=== PATIENT | female | born 1945 | race Caucasian/White ===

== ENCOUNTER → 2019-06-27 | Outpatient (CLI) | payer MEDICARE, BC ==
[~2019-06-27] MED LIST: OMNIPAQUE 350 MG/ML, 100ML BOTTLE ONE
== END | disposition home or self-care (01) ==
LOC: CFH 12:50
PROVIDERS: ATTEND Internal Medicine Cardiovascular Disease
DX: M95.4 Acquired deformity of chest and rib (principal); I71.2 Thoracic aortic aneurysm, without rupture; Q24.8 Other specified congenital malformations of heart
CPT/HCPCS: 71275; Q9967

== ENCOUNTER 2020-01-11 07:35 | Outpatient (CLI) | payer MEDICARE, BC | END 2020-01-12 23:59 | disposition home or self-care (01) | LOC: CFH 07:35 | PROVIDERS: ATTEND Internal Medicine Cardiovascular Disease | DX: I35.1 Nonrheumatic aortic (valve) insufficiency (principal); I21.19 ST elevation (STEMI) myocardial infarction involving other coronary artery of inferior wall; I10 Essential (primary) hypertension; E11.9 Type 2 diabetes mellitus without complications; E78.5 Hyperlipidemia, unspecified; I71.9 Aortic aneurysm of unspecified site, without rupture; I25.10 Atherosclerotic heart disease of native coronary artery without angina pectoris | CPT/HCPCS: 78452; 93017; 93306; A9502 ==

== ENCOUNTER 2020-01-12 07:43 | Outpatient (CLI) | payer MEDICARE, BC | END 2020-01-12 23:59 | disposition home or self-care (01) | LOC: CFH 07:43 | PROVIDERS: ATTEND Internal Medicine Cardiovascular Disease | DX: Z02.9 Encounter for administrative examinations, unspecified (principal) ==

== ENCOUNTER 2020-07-18 10:19 | Outpatient (CLI) | payer MEDICARE | END 2020-07-18 23:59 | disposition home or self-care (01) | LOC: CFH 10:19 | PROVIDERS: ATTEND Internal Medicine | DX: Z12.31 Encounter for screening mammogram for malignant neoplasm of breast (principal); N95.9 Unspecified menopausal and perimenopausal disorder; M85.80 Other specified disorders of bone density and structure, unspecified site; Z78.0 Asymptomatic menopausal state | CPT/HCPCS: 77063; 77067; 77080 ==